=== PATIENT | male | born 1985 | race Caucasian/White ===

== ENCOUNTER 2020-06-10 11:45 | Emergency (ER) | payer OTHER ==
[2020-06-10 12:27] VITALS: BP 117/62; PULSE 82; TEMP 97.9; BMI 25.8
--- NOTE | 2020-06-10 13:09 | PDOC ---
History of Present Illness - General Chief Complaint: Pain Stated Complaint: RT. ARM PAIN Time Seen by Provider: 06/10/20 12:57 History Source: Patient Exam Limitations: No Limitations - History of Present Illness Initial Comments: 06/10/20 13:05 Patient is a 35-year-old male who presents to the ED with complaint of right shoulder pain that radiates to his mid upper arm for the last 10 days. He states the pain is primarily in the trapezius region as well as the right anterior bicep region. He denies any numbness or tingling. He states the pain started after sleeping on his shoulder. He was seen by his primary doctor and was put on 2 medications that he does not know the names of. He states the medications have not been helping him. He denies any known injury. He denies any fevers or chills. The patient denies any past medical history or allergies to medications. Past History - Medical History Allergies/Adverse Reactions: Allergies Allergy/AdvReac Type Severity Reaction Status Date / Time No Known Allergies Allergy Unverified 06/10/20 12:27 Home Medications: Ambulatory Orders Lidocaine 5% Patch [Lidoderm Patch -] 1 patch TP DAILY #14 patch 06/10/20 COPD: No - Psycho-Social/Smoking History Smoking History: Never smoked Have you smoked in the past 12 months: No Information on smoking cessation initiated: No - Substance Abuse Hx (Audit-C & DAST Scrn) How often the patient has a drink containing alcohol: Never Score: In Men: 4 or > Positive; In Women: 3 or > Positive: 0 Screen Result (Pos requires Nsg. Audit-10AR): Negative In the last yr the pt used illegal drug/Rx for NonMed reason: No Score: Yes response is considered Positive: 0 Screen Result (Positive result requires Nsg. DAST-10): Negative Review of Systems - Review of Systems Comments:: 06/10/20 13:06 - Review of Systems Able to Perform ROS?: Yes Constitutional: No: Fever, Chills, Loss of Appetite, Night Sweats, Weakness HEENTM: No: Eye Pain, Vision changes, Ear Pain, Throat Pain, Throat Swelling, Mouth Pain, Difficulty Swallowing Respiratory: No: Cough, Shortness of Breath, Wheezing, Sputum Production Cardiac (ROS): No: Chest Pain, Chest Tightness, Palpitations, Irregular Heart Beat, Edema ABD/GI: No: Nausea, Vomiting, Abdominal Pain, Diarrhea : No Dysuria, No Hematuria, No Frequency, No Urgency Musculoskeletal: No: Muscle Pain, Back Pain, Muscle Weakness, Neck Pain; positive: right shoulder pain Integumentary: No: Lesions, Rash Neurological: No: Headache, Numbness, Tingling, Weakness, Speech Difficulties *Physical Exam - Vital Signs Last Vital Signs Temp Pulse Resp BP Pulse Ox 97.9 F 82 16 117/62 100 06/10/20 12:23 06/10/20 12:23 06/10/20 12:23 06/10/20 12:23 06/10/20 12:23 - Physical Exam 06/10/20 13:07 - Physical Exam General Appearance: Nourished, Appropriately Dressed, No Distress HEENT: EOMI, Normal Voice, Hearing Grossly Normal Neck: Supple, No Lymphadenopathy (R), No Lymphadenopathy (L), No Rigidity, No Decreased range of motion Respiratory/Chest: Lungs Clear, Normal Breath Sounds. No Respiratory Distress, No Accessory Muscle Use Cardiovascular: Regular Rhythm, Regular Rate, S1, S2 Gastrointestinal/Abdominal: Normal Bowel Sounds, Soft. Non-tender, No Guarding, No Rebound, No Rigidity Musculoskeletal: Normal Inspection. No Decreased Range of Motion; right trapezius muscle with palpable muscle spasm and tenderness to palpation. There is also tenderness over the proximal aspect of the right bicep possibly consistent with bicep tendinitis. No decreased range of motion. Forward flexion of the right shoulder to 180 degrees actively. Internal rotation to the upper lumbar spine. Extremity: Normal Capillary Refill, Normal Inspection Integumentary: Normal Color, Dry. No Rash Neurologic: cardiology technologist II-XII NML intact, Fully Oriented, Alert, Normal Mood/Affect, Normal Response ED Treatment Course - RADIOLOGY Radiology Studies Ordered: Category Date Time Status SHOULDER-RIGHT [RAD] Stat Radiology 06/10/20 13:01 Ordered Medical Decision Making - Medical Decision Making 06/10/20 13:08 Assessment: Patient is a 35-year-old male with right shoulder pain and proximal bicipital pain for the last 10 days. Plan: -X-ray right shoulder for further evaluation -We will hold on pain medication as the patient is on 2 medications as an outpatient but does not know the names -Will reassess 06/10/20 13:19 The patient has been made aware that his x-ray does not show any acute pathology. We will place a lidocaine patch on his right shoulder and send lidocaine patches to his pharmacy. He has been made aware that he likely will require an MRI for further evaluation and treatment. He can continue his outpatient medication and follow-up with orthopedics as he has been referred. He understands and agrees with this treatment plan and the patient stable for discharge. Discharge - Discharge Information Problems reviewed: Yes Clinical Impression/Diagnosis: Strain of right trapezius muscle Qualifiers: Encounter type: initial encounter Qualified Code(s): S46.811A - Strain of other muscles, fascia and tendons at shoulder and upper arm level, right arm, initial encounter Biceps muscle strain Qualifiers: Encounter type: initial encounter Laterality: right Qualified Code(s): S46.211A - Strain of muscle, fascia and tendon of other parts of biceps, right arm, initial encounter Condition: Stable Disposition: HOME - Additional Discharge Information Prescriptions: Lidocaine 5% Patch [Lidoderm Patch -] 1 patch TP DAILY #14 patch - Follow up/Referral Referrals: Randy Deluca MD [Staff Physician] - - Patient Discharge Instructions Patient Printed Discharge Instructions: DI for Shoulder Tendinopathy Additional Instructions: Ice to shoulder and use the lidocaine patches as needed for pain. Be sure to follow-up with orthopedics for repeat evaluation and possibly an outpatient MRI. Continue to take the medications that you were given by your primary doctor if they are helping you. - Post Discharge Activity Work/Back to School Note: Back to Work
[2020-06-10] MEDS ORDERED: LIDOCAINE 5% TOPICAL PATCH TP ONE (13:24)
[2020-06-10] MEDS ORDERED: LIDOCAINE 5% TOPICAL PATCH ONE (13:27)
[2020-06-10] MEDS ORDERED: LIDOCAINE PATCH REMOVAL MC SCH (22:00)
== END 2020-06-10 13:31 | disposition home or self-care (01) ==
LOC: JER 11:45 → JERFT 11:45
DX: S46.811A Strain of other muscles, fascia and tendons at shoulder and upper arm level, right arm, initial encounter (principal); S46.211A Strain of muscle, fascia and tendon of other parts of biceps, right arm, initial encounter
CPT/HCPCS: 73030-TC-RT-FY; 99283-25

== ENCOUNTER 2021-06-02 21:36 | Emergency (ER) | payer OTHER ==
[2021-06-02 21:46] VITALS: BP 121/72; PULSE 81; TEMP 97.9; BMI 27.3
[2021-06-02] MEDS ORDERED: ACETAMINOPHEN 500 MG TABLET (FP) PO ONE (23:25)
[2021-06-02] MEDS ORDERED: IBUPROFEN 600 MG TABLET (FP) PO ONE ×2 (23:33→23:36)
[2021-06-02] MEDS ORDERED: LIDOCAINE 5% TOPICAL PATCH TP ONE (23:34)
[2021-06-02] MEDS ORDERED: LIDOCAINE 5% TOPICAL PATCH ONE (23:36)
[2021-06-03] MEDS ORDERED: LIDOCAINE PATCH REMOVAL MC ONE (11:00)
== END 2021-06-03 00:58 | disposition home or self-care (01) ==
LOC: JER 21:36
DX: M79.602 Pain in left arm (principal); R07.89 Other chest pain
CPT/HCPCS: 71046-TC-FY; 93005; 93010; 99284-25